=== PATIENT | male | born 1960 | race Caucasian/White ===

== ENCOUNTER 2020-03-13 00:30 | Emergency (ER) | payer SELFPAY ==
[2020-03-13 00:39] VITALS: BP 112/74; PULSE 68; RESP 16; TEMP 36.6; O2SAT 97; BMI 29.6
--- NOTE | 2020-03-13 00:39 | CT_ITS ---
EXAMINATION: CT HEAD WITHOUT CONTRAST CLINICAL INFORMATION: Fall. Alcohol intoxication. COMPARISON: None TECHNIQUE: Contiguous axial imaging was performed from the skull base to vertex without intravenous administration of contrast. This CT examination was performed using dose optimization techniques as appropriate, variously including the following: *Automated exposure control *Adjustment of mA and/or kV according to patient size (this includes techniques or standardized protocols for targeted exams where dose is matched to indication/reason for exam; i.e. extremities or head) *Use of iterative reconstruction technique DLP: 722 mGy-cm FINDINGS: There is no evidence of acute intracranial hemorrhage or territorial infarction. No abnormal mass effect or midline shift is seen. Rodriguez to white matter differentiation is well preserved. No extra-axial fluid collections are identified. The ventricles are normal in size. There is no abnormal attenuation within the brain parenchyma. The osseous structures and soft tissues are normal. The mastoid air cells and visualized portions of the paranasal sinuses are well aerated. CT/CT head/brain wo con IMPRESSION: No acute intracranial pathology.
--- NOTE | 2020-03-13 00:47 | ED_ITS ---
HPI - Head Injury General Chief complaint: ETOH/Substance Use Stated complaint: etoh fall Time Seen by Provider: 03/13/20 00:39 Source: EMS Mode of arrival: EMS Limitations: other (Intoxicated) History of Present Illness HPI Narrative: Patient was found in a ditch intoxicated with small laceration left eyebrow patient does not remember what happened no other injuries MD Complaint: head injury Mechanism of Injury: unsure Related Data Allergies Allergy/AdvReac Type Severity Reaction Status Date / Time No Known Allergies Allergy Verified 03/13/20 00:39 Review of Systems Review of Systems: Yes Unobtainable due to mental status (Intoxicated) Neurologic: Reports confusion Psychiatric: Psychiatric: Reports confusion PMFSH Past Medical History Medical History ETOH abuse Social History Social History Advance Directives: No Advance Directives Information Provided: No Physical Exam Vital Signs: Vital Signs: Last Vital Signs Temp 97.9 F 03/13/20 00:39 Pulse 68 03/13/20 00:39 Resp 16 03/13/20 00:39 BP 112/74 03/13/20 00:39 Pulse Ox 97 03/13/20 00:39 Body Mass Index 29.6 Const: General: cooperative, healthy appearing, comfortable, no acute distress, well developed, alert, confusion and intoxicated appearing Nutritional Appearance: average body habitus and well nourished Orientation/consciousness: oriented to person and confusion HENMT: Head: Yes No palpable skull fracture present, Yes normocephalic and Yes laceration Ears: hearing grossly normal bilaterally General nose exam: Normal external nose present Face images: 1. Irregular laceration about 1.5 cm Eyes: Conjunctivae: conjunctivae normal Corneas: corneas normal Pupils: Equal, round and reactive pupils present Neck: Neck: Yes normal visual inspection, Yes full ROM, Yes trachea midline, Yes supple and No midline deformity Chest: Chest palpation & inspection: normal inspection of the chest and normal palpation of entire chest wall Resp: Effort & Inspection: normal respiratory effort Auscultation: clear to auscultation bilaterally Cardio: Palpation: normal PMI Rate: regular rate Rhythm: regular rhythm Heart sounds: S1 normal heart sound present and S2 normal heart sound present GI: Inspection: Yes normal to inspection Palpation (GI): Soft to palpation and nontender : General: Yes no CVA tenderness Back/Spine/Pelvis: Back: no CVA tenderness Thoracic/Lumbar Spine: thoracic and lumbar spine normal to inspection Neuro: General: oriented to person, moves all extremities, Normal light touch and pain sensation, no focal motor deficits, CN's II-XI intact bilaterally and confusion Cranial nerves: Yes Equal, round and reactive pupils present Procedures Laceration Laceration 1: Site: face Side (If applicable): left Size (cm): 2 Description: irregular and clean Depth: simple, single layer Skin layer closed with: other (dermabond) MDM - Head Injury MDM Narrative Medical decision making narrative: Patient alcoholic minor fall head CT negative came with small irregular laceration left eyebrow Dermabond was placed patient ambulate in the ER of discharge home Discharge Plan Discharge Clinical Impression: Alcoholic intoxication Qualifiers: Complication of substance-induced condition: uncomplicated Qualified Code(s): F10.920 - Alcohol use, unspecified with intoxication, uncomplicated Laceration of eyebrow, left Qualifiers: Encounter type: initial encounter Qualified Code(s): S01.112A - Laceration w ithout foreign body of left eyelid and periocular area, initial encounter Patient Disposition: Home, Self-Care Instructions: Alcohol Intoxication (ED), Skin Adhesive Care (ED)
--- NOTE | 2020-03-13 02:28 | PC.NURSE ---
PATIENT GETTING UP AND AMBULATING, PATIENT NOT VERY STEADY ON HIS FEET BUT WHEN ASKED TO SIT BACK DOWN STARTING TO WALK FASTER AND SPRINT DOWN RESTRICTED PRECAUTION AREA. HAPPENING MULTIPLE TIMES SECURITY INVOLVED. PATIENT STATED HE WAS LEAVING REGARDLESS OF STAFF. PATIENT IN VISIBLY INTOXICATED. PATIENT NOT REMEMBERING HOW HE CAME TO THE EMERGENCY DEPARTMENT. DIFFICULT TO REDIRECT. CONTINUES TO [facility]E FACILITY[facility] AFTER PATIENT TRIED TO FLEE THE PROPERTY ONCE AGAIN. PATIENT STATED NO ONE TO TAKE HIM HOME THEN STARTED TO SPRINT AWAY FROM STAFF. ASSISTED BACK TO ROOM WITH SECURITY. POLICE INVOLVED AND PROVIDING ASSISTANCE FOR PATIENT OFF OF PROPERTY. PATIENT WAS AGREEABLE TO LEAVING WITH THEM.
== END 2020-03-13 02:35 | disposition home or self-care (01) ==
PROVIDERS: Emergency Provider Internal Medicine
DX: S01.112A Laceration without foreign body of left eyelid and periocular area, initial encounter (principal); H57.12 Ocular pain, left eye; F10.920 Alcohol use, unspecified with intoxication, uncomplicated; W19.XXXA Unspecified fall, initial encounter; Y93.9 Activity, unspecified; Y92.9 Unspecified place or not applicable; Y99.9 Unspecified external cause status
CPT/HCPCS: 12011; 70450; 99283; 99284

== ENCOUNTER 2023-01-08 10:56 | Inpatient (IN) | payer SELFPAY ==
[2023-01-08] VITALS (56 sets, daily range): BP systolic 41–270; BP diastolic 20–179; PULSE 40–127; RESP 10–34; TEMP 31–38; O2SAT 70–100; BMI 19.1; BMI 17.7
--- NOTE | 2023-01-08 11:14 | ED.CPR ---
HPI - CPR General Chief Complaint: Cardiac Arrest/CPR Stated Complaint: unresponsive, cardiac arrest Source: EMS Mode of arrival: EMS History of Present Illness HPI narrative: 62-year-old male who arrives via EMS with a known history of alcohol use, no prior call off for arrival of EMS notified when in the ambulance [place] that patient was in cardiac arrest. Related Data Allergies Allergy/AdvReac Type Severity Reaction Status Date / Time No Known Allergies Allergy Verified 01/08/23 11:18 Review of Systems Review of Systems: Yes Unobtainable due to mental condition [facility] Past Medical History Source: nursing notes reviewed Medical History ETOH abuse Social History Social History Advance Directives: No Advance Directives Information Provided: No Physical Exam Vital Signs: Vital Signs: Last Vital Signs Temp 88.7 F L 01/08/23 12:04 Pulse 89 01/08/23 12:04 Resp 23 H 01/08/23 12:04 BP 121/49 L 01/08/23 12:04 Pulse Ox 100 01/08/23 12:04 O2 Del Method Mechanical Ventil ation 01/08/23 12:04 FiO2 100 01/08/23 11:29 BMI result Body Mass Index 17.7 Medications Administered Generic Name Dose Route Start Last Admin Trade Name Freq PRN Reason Stop Dose Admin Octreotide Acetate 500 mcg/ 501 mls @ 25.05 mls/hr 01/08/23 11:15 01/08/23 11:56 Sodium Chloride IVCONT 25 mcg/hr .Q20H ÁNGEL 25.05 mls/hr Administration 25 MCG/HR Pantoprazole Sodium 80 mg/ 100 mls @ 10 mls/hr 01/08/23 11:45 01/08/23 12:13 Sodium Chloride IV 8 mg/hr .Q10H ÁNGEL 10 mls/hr Administration 8 MG/HR Discontinued Medications Generic Name Dose Route Start Last Admin Trade Name Freq PRN Reason Stop Dose Admin Ceftriaxone Sodium 1 gm/ 50 mls @ 100 mls/hr 01/08/23 11:33 01/08/23 12:10 Sodium Chloride IV 01/08/23 12:02 100 mls/hr ONCE ONE Administration Pantoprazole Sodium 80 mg 01/08/23 11:09 01/08/23 11:13 Pantoprazole Sodium 40 Mg/10 Ml Vial IVPUSH 01/08/23 11:10 80 mg ONCE ONE Administration Sodium Bicarbonate 50 meq 01/08/23 11:22 01/08/23 11:25 Sodium Bicarbonate 8.4% 50 Meq/50 Ml Syringe IVPUSH 01/08/23 11:23 50 meq ONCE ONE Administration Medical Decision Making Medical Decision Making [facility] Narrative: 1119: 62-year-old male arrives via EMS with copious amounts of coffee-ground emesis occluding the airway, currently in cardiac arrest in being bagged with IO in the right tibia. Initiated chest compressions, patient is placed on the Zoll, initiated ACLS protocol, emergently intubated patient with 7 and half ET tube, there was gross contamination of the airway with coffee-ground emesis 2 was noted to pass through the vocal cords inflation of balloon and good color metric change, end-tidal CO2 poor but suspect that this is due to likely contamination of lungs with coffee-ground emesis, pupils are fixed and dilated. We did end up getting ROSC. With good pulse and blood pressure, end-tidal CO2 continues to improve, will obtain imaging studies for placement, emergently ordered blood, consult GI, 80 mg of Protonix started, octreotide drip started, NG had been placed with positive evacuation of coffee-ground material. Hematologic indices indicative of acute blood loss hemorrhage, hemoglobin-4.8 there is an un crossmatched unit of blood that is being administered, in the meantime 1 L of IV fluids being administered, in addition VBG was noted to demonstrate acidosis which is likely a combination of respiratory and metabolic given patient's cardiac arrest 1 amp of bicarb was ordered and will be given. 1132: I discussed case with Dr. Miller who agrees with current treatment with IV push Protonix and then initiation of Protonix drip, initiation of octreotide drip, recommends Rocephin for upper GI bleed, agrees with on matched blood at this time with continuation of resuscitation and will evaluate for upper endoscopy after patient is stabilized. 1142: I discussed the case with DR Kim. Blood pressure starting to decrease and will start Levophed. First unit of blood is being put up. On review of all investigations laboratory indices are significant for acute hypoperfusion secondary to the above acute blood loss anemia, for patient has received antibiotics. There is a significant leukocytosis without left shift, acute blood loss anemia secondary to upper GI hemorrhage, no thrombocytopenia. Coagulation studies demonstrate an INR-1.3 and PT-16.2. On review of patient's home medications through the prescription portal I do not appreciate any prescriptions for anticoagulation but EKG is significant for atrial fibrillation. Blood gas demonstrated a pH-7.07 that is metabolic in etiology and patient received 1 amp of bicarb. Chemistry indices are again reflective patient's cardiac arrest/acute hypoperfusion which has led to a lactic acidosis of 14.8, there is no NASH but there is corresponding serum evidence of known metabolic acidosis, potassium is elevated at 5.6 and there is evidence of drop in fluid status with decreased sodium and chloride. Chest x-ray shows that ET tube and nasogastric tube are in good position. Patient has been accepted to the ICU. Will start propofol drip, blood pressure remains stable at this time, an additional 1 amp of bicarb is being given and requested the next 2 units of blood be given urgently. 1231: I discussed case with the family members. Differential Diagnosis Differential Diagnoses: The differential diagnosis associated with the presentation includes Please see the discussion above Admission/Observation Consideration of admission/observation: Escalation of care including admission/observation considered Please see the discussion above Consult Healthcare Provider Management of the patient was discussed with: Warehouse [employer] Please see the discussion above Lab Data MDM Lab Attestation statement: I reviewed the patient's lab results. Please see the discussion above 01/08/23 11:00 01/08/23 11:00 Labs: Lab Results 01/08/23 01/08/23 01/08/23 Range/Units 10:59 11:00 11:00 WBC 24.8 H (4.8-10.8) X10*3/uL RBC 1.65 L (4.60-5.80) X10*6/uL Hgb 4.8 L* (14.0-18.0) g/dl Hct 15.3 L* (42.0-52.0) % MCV 92.7 (80.0-98.0) fL MCH 29.1 (27.0-33.0) pg MCHC 31.4 (31.0-36.0) g/dl RDW 14.2 (11.0-16.0) % Plt Count 308 (160-400) X10*3/uL MPV 10.3 (9.4-12.4) fL Immature Gran % (Auto) Cancelled Neut % (Auto) Cancelled Lymph % (Auto) Cancelled [place] % (Auto) Cancelled Eos % (Auto) Cancelled Baso % (Auto) Cancelled Lymph # (Auto) Cancelled [place] # (Auto) Cancelled Eos # (Auto) Cancelled Baso # (Auto) Cancelled Abs Immat Gran (auto) Cancelled Absolute Neuts (auto) Cancelled Absolute Nucleated RBC 0.550 H (0.0-0.012) X10*3/uL Nucleated RBC % (auto) 2.2 H (0.0-0.2) /100WBC Neutrophils % (Manual) 62 (45-73) % Band Neutrophils % 7 H (3-5) % Lymphocytes % (Manual) 20 (20-40) % Monocytes % (Manual) 4 (2-11) % Eosinophils % (Manual) 1 (0-4) % Metamyelocytes % 2 % Myelocytes % 4 % Abs Neuts (Manual) 17.1 H (2.0-8.3) X10*3/uL Lymphocytes # (Manual) 5.0 H (1.2-4.9) X10*3/uL Monocytes # (Manual) 1.0 (0.1-1.2) X10*3/uL Eosinophils # (Manual) 0.2 (0.0-0.4) X10*3/uL Metamyelocytes # 0.5 X10*3/uL Myelocytes # 1.0 X10*/uL Nucleated RBCs 5 H (0-0) /100WBC Platelet Estimate NORMAL (NORMAL) Plt Morphology Comment NORMAL RBC Morphology NOTED Polychromasia 1+ (0-2) /OIF Spherocytes 1+ (0-2) /OIF Hilton Cells 3+ (>5) /OIF Acanthocytes (Spur) 1+ (0-2) /OIF Schistocytes 1+ (0-2) /OIF Hold Purple Top SEE NOTE PT 16.2 H Cancelled (11.1-13.3) SEC INR 1.3 H (0.9-1.1) APTT (26.0-36.4) SEC VBG pH (7.32-7.43) VBG pCO2 mmHg VBG pO2 mmHg VBG HCO3 (22-26) mmol/L VBG O2 Saturation VBG Base Excess mmol/L Sodium (135-145) mmol/L Potassium (3.3-5.1) mmol/L Chloride (96-108) mmol/L Carbon Dioxide (22-29) mmol/L Anion Gap (12-20) BUN (9-16) mg/dL Creatinine (0.5-1.4) mg/dL Estim Creat Clear Calc Estimated GFR POC Glucose 219 H (60-115) mg/dL Random Glucose (60-115) mg/dL Lactic Acid (0.5-2.0) mmol/L Calcium (8.4-10.2) mg/dL Magnesium (1.6-2.6) mg/dL Total Bilirubin (0.0-1.0) mg/dL AST (5-37) U/L ALT (0-40) U/L Alkaline Phosphatase (39-117) U/L Troponin I High Sens (<3.5-35.0) ng/L Total Protein (6.5-8.0) g/dL Albumin (3.5-5.0) g/dL Salicylates (15-30) mg/dL Acetaminophen (<30) mcg/mL Ethyl Alcohol mg/dL Blood Type Antibody Screen Crossmatch 01/08/23 01/08/23 01/08/23 Range/Units 11:00 11:14 11:42 WBC (4.8-10.8) X10*3/uL RBC (4.60-5.80) X10*6/uL Hgb (14.0-18.0) g/dl Hct (42.0-52.0) % MCV (80.0-98.0) fL MCH (27.0-33.0) pg MCHC (31.0-36.0) g/dl RDW (11.0-16.0) % Plt Count (160-400) X10*3/uL MPV (9.4-12.4) fL Immature Gran % (Auto) Neut % (Auto) Lymph % (Auto) [place] % (Auto) Eos % (Auto) Baso % (Auto) Lymph # (Auto) [place] # (Auto) Eos # (Auto) Baso # (Auto) Abs Immat Gran (auto) Absolute Neuts (auto) Absolute Nucleated RBC (0.0-0.012) X10*3/uL Nucleated RBC % (auto) (0.0-0.2) /100WBC Neutrophils % (Manual) (45-73) % Band Neutrophils % (3-5) % Lymphocytes % (Manual) (20-40) % Monocytes % (Manual) (2-11) % Eosinophils % (Manual) (0-4) % Metamyelocytes % % Myelocytes % % Abs Neuts (Manual) (2.0-8.3) X10*3/uL Lymphocytes # (Manual) (1.2-4.9) X10*3/uL Monocytes # (Manual) (0.1-1.2) X10*3/uL Eosinophils # (Manual) (0.0-0.4) X10*3/uL Metamyelocytes # X10*3/uL Myelocytes # X10*/uL Nucleated RBCs (0-0) /100WBC Platelet Estimate (NORMAL) Plt Morphology Comment RBC Morphology Polychromasia /OIF Spherocytes /OIF Melisa Cells /OIF Acanthocytes (Spur) /OIF Schistocytes /OIF Hold Purple Top PT (11.1-13.3) SEC INR Cancelled (0.9-1.1) APTT 47.2 H (26.0-36.4) SEC VBG pH 7.07 L* (7.32-7.43) VBG pCO2 21 mmHg VBG pO2 87 mmHg VBG HCO3 6 L (22-26) mmol/L VBG O2 Saturation TNP VBG Base Excess -21.5 mmol/L Sodium 124 L (135-145) mmol/L Potassium 5.6 H (3.3-5.1) mmol/L Chloride 92 L (96-108) mmol/L Carbon Dioxide 8 L* (22-29) mmol/L Anion Gap 30 H (12-20) BUN 53 H (9-16) mg/dL Creatinine 1.12 (0.5-1.4) mg/dL Estim Creat Clear Calc 54.2 Estimated GFR > 60 POC Glucose (60-115) mg/dL Random Glucose 269 H (60-115) mg/dL Lactic Acid 14.8 H* (0.5-2.0) mmol/L Calcium 8.4 (8.4-10.2) mg/dL Magnesium 3.0 H (1.6-2.6) mg/dL Total Bilirubin 0.3 (0.0-1.0) mg/dL AST 149 H (5-37) U/L ALT 145 H (0-40) U/L Alkaline Phosphatase 290 H (39-117) U/L Troponin I High Sens 7.2 (<3.5-35.0) ng/L Total Protein 4.3 L (6.5-8.0) g/dL Albumin 2.4 L (3.5-5.0) g/dL Salicylates < 5.0 L (15-30) mg/dL Acetaminophen < 17 (<30) mcg/mL Ethyl Alcohol < 10 mg/dL Blood Type A Positive Antibody Screen NEGATIVE Crossmatch See Detail Independent Interpretation I performed an independent interpretation of an: EKG Interpretation: Atrial fibrillation. Radiology Impression Discussion of test interpretation with radiology: I have reviewed the radiologist's reading. Radiologist Impression: Please see the discussion above External Record Review External record reviewed: Outpatient record, Prior outpatient labs and Prior outpatient radiology Chronic Conditions Patient?s care impacted by: Other Alcohol use disorder Procedures Intubation Time out performed: No sedative: none Laryngoscope: fiber optic video scope ET Tube Size: 7.5 ET Tube Uncuffed: Yes Tube Secured Depth (cm): 23 Tube Secured Location: lips Tube Placement Confirmation: visualized tube passing through cords, equal breath sounds bilaterally, no breath sounds over epigastrium and confirmation by capnometry Patient Tolerated Procedure: well Additional Comments: Gross contamination of airway with coffee-ground emesis. Critical Care Time Critical Care Time Critical Care Time: Yes Total Critical Care Time: 60 Attestation: I personally attest to this time spent taking care of the patient. Discharge Plan Discharge Clinical Impression: Cardiac arrest, Acute upper GI bleed Patient Disposition: Admitted As Inpatient
--- NOTE | 2023-01-08 13:56 | PM.GICN ---
History of Present Illness Data of Consult Service Date: 01/08/23 Requesting physician: Aida Michaels Primary Care Provider: None Physician HPI Reason for consult: UGIB This is a 62 y.o M with PMH of etOH use disorder who was brought to the ER for cardiac arrest on route to the hospital s/p ROSC and admission to ICU for post cardiac arrest, hemorrhagic shock and hypoxic resp failure. Gastroenterology has been consulted for hemorrhagic shock 2/2 GIB. From collateral history, patient was noted to have copious amounts of coffee-ground emesis in the EMS, as well as after insertion of the OG tube almost 1 L was suctioned. No BRB noted. No melena noted so far. He does have history of alcohol use disorder and has had visit to the ER in the past for acute intoxication. Underlying liver function is unknown. Details of cardiac arrest including initial rhythm, total downtime and ROSC time are also unknown. Initial etOH level was undetectable although opiate positive. Again limited hx whether there is an underlying suspicion for opiate overdose and if narcan was utilised. Initial labs are significant for acute anemia of blood loss with Hb 4.8, profound acidosis with pH 7.0 and lactate 14. At the time of assessment in ICU, he is on significant pressor support. Review of Systems Review of Systems: Yes unobtainable due to endotracheal tube and Unobtainable due to mental condition PMFSH Past Medical History Medical History ETOH abuse Social History Social History Household Members: Unknown / Unable to assess Housing: Unknown / Unable to assess Unable to assess alcohol history related to: Unable to respond Patient Tobacco Use Status: Refuse Tobacco use screen Meds Allergies Allergy/AdvReac Type Severity Reaction Status Date / Time No Known Allergies Allergy Verified 01/08/23 11:18 Active Medications: Current Medications Octreotide Acetate 500 mcg/ (Sodium Chloride) 501 mls @ 25.05 mls/hr IVCONT .Q20H ÁNGEL Last Admin: 01/08/23 11:56 Dose: 25 mcg/hr, 25.05 mls/hr Pantoprazole Sodium 80 mg/ (Sodium Chloride) 100 mls @ 10 mls/hr IV .Q10H ÁNGEL Last Admin: 01/08/23 12:13 Dose: 8 mg/hr, 10 mls/hr Norepinephrine Bitartrate (Levophed) 8 mg in 250 mls @ 0 mls/hr IV .Q0M ÁNGEL; Protocol Last Admin: 01/08/23 13:40 Dose: 0.05 mcg/kg/min, 5.26 mls/hr Propofol (Diprivan) 1,000 mg in 100 mls @ 0 mls/hr IVCONT .Q0M ÁNGEL; Protocol Last Admin: 01/08/23 13:32 Dose: 30 mcg/kg/min, 10.1 mls/hr Physical Exam Vital Signs: Vital Signs: Last Vital Signs Temp 89.2 F L 01/08/23 12:53 Pulse 95 01/08/23 13:40 Resp 18 01/08/23 13:32 BP 67/38 L 01/08/23 13:40 Pulse Ox 91 L 01/08/23 13:32 O2 Del Method Mechanical Ventil ation 01/08/23 12:53 FiO2 100 01/08/23 11:29 BMI result Body Mass Index 17.7 Gen appear: Ill appearing, intubated HEENT: nonicteric, Chest: Diffuse ronchi CVS: Regular S1/S2 Abd: soft, nondistended, bowel sounds hypoactive Ext: no peripheral edema Neuro: Sedated with propofol Results Labs 01/08/23 16:06 01/08/23 16:06 Labs: Short CBC 01/08/23 Range/Units 11:00 WBC 24.8 H (4.8-10.8) X10*3/uL Hgb 4.8 L* (14.0-18.0) g/dl Hct 15.3 L* (42.0-52.0) % Plt Count 308 (160-400) X10*3/uL BMP 01/08/23 11:00 Sodium 124 L Potassium 5.6 H Chloride 92 L Carbon Dioxide 8 L* BUN 53 H Creatinine 1.12 Calcium 8.4 Liver Function 01/08/23 Range/Units 11:00 Total Bilirubin 0.3 (0.0-1.0) mg/dL AST 149 H (5-37) U/L ALT 145 H (0-40) U/L Alkaline Phosphatase 290 H (39-117) U/L Albumin 2.4 L (3.5-5.0) g/dL Urine 01/08/23 Range/Units 11:45 Urine Color Yellow Urine Appearance Clear Urine pH 6.0 (5.0-9.0) Ur Specific [place] 1.025 (1.005-1.025) Urine Protein 30 (1+) H (Neg-Trace) mg/dL Urine Glucose (UA) Negative (Negative) mg/dL Assessment and Plan (1) Anemia: Status: Acute (2) Alcohol use disorder: Status: Acute (3) Cardiac arrest: Status: Acute Plan Ddx for GIB leading to shock include variceal bleeding, PUD, aortoenteric fistula. Will need continued resuscitation as primary team is already doing although would recommend another CBC check after 2u are transfused to ensure current H/H is not in error. He will also need to be r/o other potential causes of cardiac arrest hipolito arrythmia, cardiomyopathy, PE, opiate overdose etc since limited information surrounding his cardiac arrest is available at this time. Recommendations: - Cont resuscitation. Consider rechecking CBC after 2u transfusion to r/o lab error. - Since underlying chronic liver disease is suspected given report of longstanding etOH use, recommend adding IV octreotide and ceftriaxone - Check LFTs - although expect to see high transaminases post cardiac arrest from shock liver - Agree with IV protonix - Consider CT imaging of abd once pt stable to transport to [facility] - Evaluation for etiology of cardiac arrest as per primary team - Once adequately resuscitated and stabilized from cardiopulmonary standpoint, will need an upper endoscopy for evaluation - Keep NPO Thank you for allowing me to participate in his care. Please do not hesitate to reach out for any questions or concerns. Time Spent With Patient Time: Total time managing care of this patient today ____ minutes. Procedures Date of Service Date of Service: 01/08/23
--- NOTE | 2023-01-08 14:07 | PC.NURSE ---
ICU provider bedside attempting to obtain central line access.
--- NOTE | 2023-01-08 15:20 | W.PM.CCHP ---
Procedures Date of Service Date of Service: 01/08/23 Central Line Placement Right IJ: Central Line Comments: Patient in hemorrhagic shock refractory to peripheral pressor support, emergent right-sided Cordis sheath introduced placed in the emergency room under ultrasound guidance with no immediate complications at approximately 1445. X-ray for line position is pending.
--- NOTE | 2023-01-08 15:20 | PC.NURSE ---
brought in by ambulance after family member called ems d/t pt not acting right/eating for a week. upon arrival, pt was found in sinus katalina at 40 beats per min and 6 respirations per min. ems placed I&O in right howard. 0.5mg of atropine administered by ems - heart rate increased to 60. another 0.5mg of atropine administered by ems - no pulse noted so cpr was initiated. 500cc of ground coffee emesis was suctioned while en route to ED. 2 rounds of epi also administered. 1055 - pt brought in by ambulance 1056 - tube placed by Dr. Michaels - 7 / tube, 23 at lip 1058 - 20g IV placed in right AC 1059 - pulse check - compressions resumed 1100 - 1mg epi 1101 - pulse check - compressions resumed 1103 - pulse check - pupils fixed and dilated - compressions resumed 1104 - 1mg epi 1105 - pulse check - PEA - compressions resumed 1107 - pulse check - pulse felt in right femoral - 87bpm 1110 - BP = 99/81, HR = 87, end tidal = 23 1111 - ekg performed, documented and seen by provider 1113 - 80mg protonix administered via IV in right AC
--- NOTE | 2023-01-08 15:53 | PC.NURSE ---
This RN arrival to ER to assist at approx 1350. BP found to be low - dropping to 60's to 70's systolic at this time. Dr Kim ordered to increase Levo in increments of 0.1, to max of 0.7mcg/kig/min by the time need to transfer from ER to ICU. Dr Kim aware of rates of levo. Dr Kim at bedside to do emergent central line - 6 haitian cordis put in at approx 1420. 3rd unit of blood running in as fast as possible. Patient O2sat started dropping to 78% to 82% - RT called to bedside - ensured 02 up to 100%. Once cordis was put in, Dr Kim ordered patient to come right to unit r/t instability & not do CT scan. Also Ordered to run levo through central line prior to CXR confirmation. OG tube hooked to intermit suction per MD order - coffee ground emesis coming from tube. Bear hugger put back on once in ER. Patient low temp 91-93. Patient brought to ICU emergently to 252 with RT at bedside at approx 1445. Levophed remains at 0.7mcg/kg/min. O2sat to mid 80's - Dr Kim & RT working on vent setting changes.
--- NOTE | 2023-01-08 15:53 | PM.CCHP ---
History of Present Illness Date of Service: 01/08/23 Chief Complaint: cardiac arrest, hemorrhagic shock 62-year-old gentleman with underlying alcoholism admitted on 01/08/2023 with coffee ground emesis resulting in cardiac arrest in the emergency room with return of spontaneous circulation after approximately 15 minutes of CPR, intubated during the code with coffee-ground material suctioned from ET tube. patient with initial stabilization, however shortly re-developed shock requiring placement of emergent large bore central venous access for pressor support and blood product administration. Unable to obtain imaging studies secondary to refractory shock and hypoxia refractory to maximum ventilatory support. Gastroenterology service consulted. Status post confusion of 4 units of packed red blood cells with improvement of initial hemoglobin of 4.8. Patient continues on multiple pressor support. Review of Systems Review of Systems: Yes unobtainable due to endotracheal tube, Unobtainable due to mental condition and Unobtainable due to mental status PMFSH Past Medical History Medical History ETOH abuse Social History Social History Household Members: Unknown / Unable to assess Housing: Unknown / Unable to assess Unable to assess alcohol history related to: Unable to respond Patient Tobacco Use Status: Refuse Tobacco use screen Meds Allergies Allergy/AdvReac Type Severity Reaction Status Date / Time No Known Allergies Allergy Verified 01/08/23 11:18 Active Medications: Current Medications Octreotide Acetate 500 mcg/ (Sodium Chloride) 501 mls @ 25.05 mls/hr IVCONT .Q20H ÁNGEL Last Admin: 01/08/23 11:56 Dose: 25 mcg/hr, 25.05 mls/hr Pantoprazole Sodium 80 mg/ (Sodium Chloride) 100 mls @ 10 mls/hr IV .Q10H ÁNGEL Last Admin: 01/08/23 12:13 Dose: 8 mg/hr, 10 mls/hr Norepinephrine Bitartrate (Levophed) 8 mg in 250 mls @ 0 mls/hr IV .Q0M ÁNGEL; Protocol Last Admin: 01/08/23 13:40 Dose: 0.05 mcg/kg/min, 5.26 mls/hr Propofol (Diprivan) 1,000 mg in 100 mls @ 0 mls/hr IVCONT .Q0M ÁNGEL; Protocol Last Admin: 01/08/23 13:32 Dose: 30 mcg/kg/min, 10.1 mls/hr Lactated Ringer's (Lr) 1,000 mls @ 999 mls/hr IV .Q1H1M ÁNGEL Stop: 01/08/23 17:30 Last Admin: 01/08/23 15:46 Dose: 999 mls/hr Physical Exam Vital Signs: Vital Signs: Last Vital Signs Temp 93 F L 01/08/23 15:23 Pulse 100 01/08/23 15:23 Resp 22 H 01/08/23 15:23 BP 128/65 01/08/23 15:23 Pulse Ox 86 L 01/08/23 15:00 O2 Del Method Mechanical Ventil ation 01/08/23 15:00 FiO2 100 01/08/23 15:00 BMI result Body Mass Index 17.7 Const: General: other ( Comatose) Nutritional Appearance: malnourished Eyes: Sclerae: sclerae normal Neck: Neck: Yes no lymphadenopathy, Yes trachea midline and Yes supple Resp: Auscultation: crackles ( diffuse bilateral) Cardio: Rate: tachycardic Rhythm: regular rhythm Heart sounds: no gallops, no murmurs and no rubs GI: Palpation (GI): Soft to palpation and Other GI palpation findings present ( Nontender) Auscultation: normal bowel sounds Extrem: General: Yes no pedal edema, No clubbing and No cyanosis Results Labs 01/08/23 16:06 01/08/23 16:06 Labs: Laboratory Results - last 24 hr 01/08/23 01/08/23 01/08/23 10:59 11:00 11:00 MCV 92.7 MCH 29.1 MCHC 31.4 RDW 14.2 Plt Count 308 MPV 10.3 Immature Gran % (Auto) Cancelled Neut % (Auto) Cancelled Lymph % (Auto) Cancelled George % (Auto) Cancelled Eos % (Auto) Cancelled Baso % (Auto) Cancelled Lymph # (Auto) Cancelled George # (Auto) Cancelled Eos # (Auto) Cancelled Baso # (Auto) Cancelled Abs Immat Gran (auto) Cancelled Absolute Neuts (auto) Cancelled Absolute Nucleated RBC 0.550 H Nucleated RBC % (auto) 2.2 H Neutrophils % (Manual) 62 Band Neutrophils % 7 H Lymphocytes % (Manual) 20 Monocytes % (Manual) 4 Eosinophils % (Manual) 1 Metamyelocytes % 2 Myelocytes % 4 Abs Neuts (Manual) 17.1 H Lymphocytes # (Manual) 5.0 H Monocytes # (Manual) 1.0 Eosinophils # (Manual) 0.2 Metamyelocytes # 0.5 Myelocytes # 1.0 Nucleated RBCs 5 H Platelet Estimate NORMAL Plt Morphology Comment NORMAL RBC Morphology NOTED Polychromasia 1+ (0-2) Spherocytes 1+ (0-2) Melisa Cells 3+ (>5) Acanthocytes (Spur) 1+ (0-2) Schistocytes 1+ (0-2) Hold Purple Top SEE NOTE PT 16.2 H Cancelled INR 1.3 H APTT O2 Saturation ABG pH at Pt Temp ABG pCO2 at Pt Temp ABG pO2 at Pt Temp ABG HCO3 ABG Base Excess (Actual) VBG pH VBG pCO2 VBG pO2 VBG HCO3 VBG O2 Saturation VBG Base Excess Anion Gap Estim Creat Clear Calc Estimated GFR POC Glucose 219 H Random Glucose Lactic Acid Lactic Acid F/U @ 2Hr Calcium Magnesium Total Bilirubin AST ALT Alkaline Phosphatase Total Protein Albumin Urine Color Urine Appearance Urine pH Ur Specific [place] Urine Protein Urine Glucose (UA) Urine Ketones Urine Blood Urine Nitrite Ur Leukocyte Esterase Urine RBC Urine WBC Ur Squamous Epith Cells Urine Bacteria Hyaline Casts Salicylates Urine Opiates Screen Urine Fentanyl Screen Acetaminophen Ur Barbiturates Screen Ur Phencyclidine Scrn Ur Amphetamines Screen U Benzodiazepines Scrn Urine Cocaine Screen U Marijuana (THC) Screen Ethyl Alcohol Blood Type Antibody Screen Crossmatch 01/08/23 01/08/23 01/08/23 11:00 11:14 11:42 MCV MCH MCHC RDW Plt Count MPV Immature Gran % (Auto) Neut % (Auto) Lymph % (Auto) George % (Auto) Eos % (Auto) Baso % (Auto) Lymph # (Auto) George # (Auto) Eos # (Auto) Baso # (Auto) Abs Immat Gran (auto) Absolute Neuts (auto) Absolute Nucleated RBC Nucleated RBC % (auto) Neutrophils % (Manual) Band Neutrophils % Lymphocytes % (Manual) Monocytes % (Manual) Eosinophils % (Manual) Metamyelocytes % Myelocytes % Abs Neuts (Manual) Lymphocytes # (Manual) Monocytes # (Manual) Eosinophils # (Manual) Metamyelocytes # Myelocytes # Nucleated RBCs Platelet Estimate Plt Morphology Comment RBC Morphology Polychromasia Spherocytes [place] Cells Acanthocytes (Spur) Schistocytes Hold Purple Top PT INR Cancelled APTT 47.2 H O2 Saturation ABG pH at Pt Temp ABG pCO2 at Pt Temp ABG pO2 at Pt Temp ABG HCO3 ABG Base Excess (Actual) VBG pH 7.07 L* VBG pCO2 21 VBG pO2 87 VBG HCO3 6 L VBG O2 Saturation TNP VBG Base Excess -21.5 Anion Gap 30 H Estim Creat Clear Calc 54.2 Estimated GFR > 60 POC Glucose Random Glucose 269 H Lactic Acid 14.8 H* Lactic Acid F/U @ 2Hr Calcium 8.4 Magnesium 3.0 H Total Bilirubin 0.3 AST 149 H ALT 145 H Alkaline Phosphatase 290 H Total Protein 4.3 L Albumin 2.4 L Urine Color Urine Appearance Urine pH Ur Specific [place] Urine Protein Urine Glucose (UA) Urine Ketones Urine Blood Urine Nitrite Ur Leukocyte Esterase Urine RBC Urine WBC Ur Squamous Epith Cells Urine Bacteria Hyaline Casts Salicylates < 5.0 L Urine Opiates Screen Urine Fentanyl Screen Acetaminophen < 17 Ur Barbiturates Screen Ur Phencyclidine Scrn Ur Amphetamines Screen U Benzodiazepines Scrn Urine Cocaine Screen U Marijuana (THC) Screen Ethyl Alcohol < 10 Blood Type A Positive Antibody Screen NEGATIVE Crossmatch See Detail 01/08/23 01/08/23 01/08/23 11:45 13:44 15:03 MCV MCH MCHC RDW Plt Count MPV Immature Gran % (Auto) Neut % (Auto) Lymph % (Auto) George % (Auto) Eos % (Auto) Baso % (Auto) Lymph # (Auto) George # (Auto) Eos # (Auto) Baso # (Auto) Abs Immat Gran (auto) Absolute Neuts (auto) Absolute Nucleated RBC Nucleated RBC % (auto) Neutrophils % (Manual) Band Neutrophils % Lymphocytes % (Manual) Monocytes % (Manual) Eosinophils % (Manual) Metamyelocytes % Myelocytes % Abs Neuts (Manual) Lymphocytes # (Manual) Monocytes # (Manual) Eosinophils # (Manual) Metamyelocytes # Myelocytes # Nucleated RBCs Platelet Estimate Plt Morphology Comment RBC Morphology Polychromasia Spherocytes Melisa Cells Acanthocytes (Spur) Schistocytes Hold Purple Top PT INR APTT O2 Saturation 82.0 ABG pH at Pt Temp 6.94 L* ABG pCO2 at Pt Temp 50 H ABG pO2 at Pt Temp 65 L ABG HCO3 11 L ABG Base Excess (Actual) -20.5 VBG pH VBG pCO2 VBG pO2 VBG HCO3 VBG O2 Saturation VBG Base Excess Anion Gap Estim Creat Clear Calc Estimated GFR POC Glucose Random Glucose Lactic Acid Lactic Acid F/U @ 2Hr 14.2 H* Calcium Magnesium Total Bilirubin AST ALT Alkaline Phosphatase Total Protein Albumin Urine Color Yellow Urine Appearance Clear Urine pH 6.0 Ur Specific Hartley 1.025 Urine Protein 30 (1+) H Urine Glucose (UA) Negative Urine Ketones Negative Urine Blood Negative Urine Nitrite Negative Ur Leukocyte Esterase Negative Urine RBC 0-2 Urine WBC 0-5 Ur Squamous Epith Cells 0-2 Urine Bacteria None Seen Hyaline Casts 6-10 Salicylates Urine Opiates Screen POSITIVE H Urine Fentanyl Screen Not Detected Acetaminophen Ur Barbiturates Screen Not Detected Ur Phencyclidine Scrn Not Detected Ur Amphetamines Screen Not Detected U Benzodiazepines Scrn Not Detected Urine Cocaine Screen Not Detected U Marijuana (THC) Screen POSITIVE H Ethyl Alcohol Blood Type Antibody Screen Crossmatch Imaging Radiologist's Impressions: Impressions Chest X-Ray 01/08/23 11:30 IMPRESSION: 1. Endotracheal tube and enteric tube are in satisfactory position. 2. Bilateral patchy interstitial opacities greater on the right likely interstitial edema or pneumonitis. No pleural effusion seen. Assessment and Plan (1) Acute hypoxic respiratory failure: Status: Acute (2) Pulmonary aspiration of gastric contents: Status: Acute (3) Acute upper GI bleed: Status: Acute (4) Cardiac arrest: Status: Acute (5) Alcohol use disorder: Status: Acute (6) Acute blood loss anemia: Status: Acute (7) Hemorrhagic shock: Status: Acute (8) Ischemia reperfusion injury of liver: Status: Acute Plan Assessment: 62-year-old gentleman admitted with cardiac arrest secondary to hemorrhagic shock secondary to upper GI bleed with hospital course further complicated by refractory shock and refractory hypoxia Plan: Neuro: No acute issues. Cardiac: Cardiac arrest after hemorrhagic shock, now on multiple pressor support. Continue to titrate off as tolerated. Echo requested. Pulmonary: Acute hypoxic respiratory failure, intubated during CPR, aspiration of gastric contents/coffee ground emesis. On maximum ventilatory support with refractory hypoxia. Renal: No acute issues. Endo: No acute issues. GI: Upper GI bleed. Gastroenterology service consulted. PPI and octreotide drips. Suspicion for underlying alcoholic cirrhosis. ID: No evidence of septic shock. Underlying hemorrhagic shock.. Empirically covered with cefepime. Heme/Onc: acute blood loss anemia secondary to upper GI bleed, now status post 4 units of packed red blood cells with stabilization of initial hemoglobin of 4.8. continue to monitor hemoglobin level. Psych: No acute issues. Miscellaneous: patient's sister notified. Prophylaxis: PPI drip, pneumatic compression Diet: nothing by mouth Critical care time spent: 120 minutes excluding separately billable procedures Time Spent With Patient Time: Total time managing care of this patient today ____ minutes.
--- NOTE | 2023-01-08 19:03 | PC.NURSE ---
Assumed care at 1630. Pt continues to be mechanically ventilated, levophed drip titrated per MAR. Pt experienced multiple wide variations in BP, o2 saturation, and HR. MD notified and at bedside. Epi and mia drips ordered, started, and titrated per MAR. For details, see provider notification flowsheet. Pacer pads in place, backboard in place, code cart and Dylan in room. 1 amp bicarb and 2g calcium gluconate administered per MAR. Current vitals: HR 125; bp 99/55; o2 sat 83% on 100% fio2. MD aware. Shift report given to overnight RN.
[2023-01-09] VITALS (97 sets, daily range): BP systolic 60–130; BP diastolic 30–74; PULSE 82–143; RESP 20–38; TEMP 34.7–38.1; O2SAT 71–95; BMI 20.9
[2023-01-09 05:58] LABS: Alanine Aminotransferase 1197 U/L (0-40); Albumin Level 1.8 g/dL (3.5-5.0); Alkaline Phosphatase 135 U/L (39-117); Anion Gap 21 (12-20); Aspartate Amino Transferase 2237 U/L (5-37); Bilirubin Total 1.3 mg/dL (0.0-1.0); Blood Urea Nitrogen 58 mg/dL (9-16); Calcium 6.5 mg/dL (8.4-10.2); Carbon Dioxide 15 mmol/L (22-29); Chloride 95 mmol/L (96-108); Creatinine Clr Calc Pharmacy 32.6; Estimated Glomerular Filt Rate 37; Glucose Random 146 mg/dL (60-115); Phosphorus 4.1 mg/dL (2.7-4.5); Potassium 3.7 mmol/L (3.3-5.1); Sodium 127 mmol/L (135-145); Total Protein 2.9 g/dL (6.5-8.0)
--- NOTE | 2023-01-09 06:18 | PM.EVENT ---
Documented by User: Josh Chan NP 01/09/23 06:21 Event Note Date of Service: 01/09/23 Event Note: Patient sister Romina Calderon, only patient relative, at bedside,Informed of patient condition and poor clinical status. Sister decided to change code status to DNR/DNI at this time. Time Spent With Patient Time: Total time managing care of this patient today ____ minutes. Documented by User: Kaz Kim MD 01/09/23 11:15 Event Note Date of Service: 01/09/23
--- NOTE | 2023-01-09 07:00 | CA_ITS ---
Transthoracic Echocardiogram Patient (Last, First, Middle): Hussein Melchor, Gender: Male Date of : 1960 Age: 62 Procedure Date: 01/09/2023 Procedure Type: Transthoracic Echocardiogram Location: ICU Height: 167.64 cm Weight: 65.77 kg BSA: 1.74 m2 Heart Rate: bpm BP: 91 / 42 mmHg Machine Skiver: Referring MD: Kaz Kim MD Symptoms: s/p cardiac arrest Study Quality: Fair ECG Rhythm: Sinus Conclusions: - Normal left ventricular cavity size. There is normal left ventricular wall thickness. The left ventricular systolic function is mildly decreased. The visually estimated ejection fraction is between 40-45%. - Normal right ventricular cavity size and systolic function. - There is mild dilatation of the ascending aorta measuring 3.40 cm. Findings Procedure Information Contrast agent, definity, is being given per protocol without apparent complications. Left Ventricle Normal left ventricular cavity size. There is normal left ventricular wall thickness. The left ventricular systolic function is mildly decreased. The visually estimated ejection fraction is between 40-45%. There is mild global hypokinesis. Diastolic function is normal for age. Right Ventricle Normal right ventricular cavity size and systolic function. Atria The left atrium is normal in size. Aortic Valve Normal aortic valve structure and function. There is no aortic valve stenosis. There is no aortic valve regurgitation. Mitral Valve Likely normal mitral valve structure and function. There is no mitral valve regurgitation. There is no mitral valve stenosis. Pulmonic Valve The pulmonic valve is likely normal. Tricuspid Valve Normal tricuspid valve structure. There is trace tricuspid valve regurgitation. Tricuspid regurgitation envelope is inadequate for calculation of right ventricular systolic pressure. Indeterminate right atrial pressure. Great Vessels There is mild dilatation of the ascending aorta measuring 3.40 cm. Venous The inferior vena cava is normal in size and does not collapse with inspiration. Pericardium/Pleural There is no evidence of pericardial effusion. Prior Study Comparison No prior study available for comparison. Measurements 2D Linear Measurements IVSd: 0.86 0.6-0.9/0.6-1.0 cm LVIDd: 4.00 3.9-5.3/4.2-5.9 cm LVIDd Index: 2.30 2.4-3.2/2.2-3.1 cm/m2 LVIDs: 2.46 2.0-3.6 cm LVPWd: 0.88 0.7-1.1 cm Ao Root: 3.10 2.1-3.5 cm LA Diam: 2.30 2.7-3.8/3.0-4.0 cm LAIDs Index: 1.32 1.5-2.3 cm/m2 LV Mass: 130.12 67-162/88-224 g LV Mass Index: 74.78 43-95/49-115 g/m2 LVOT Diam: 2.10 3.0+(-)1.3 cm 2D Systolic Function EF 4C: 37.40 >55% EF 2C: 34.90 >55% EF BiP: 31.70 >55% Mitral Valve MV Pk E: 0.42 MV PK A: 0.71 MV Decel Time: 149.00 E/A: 0.60 E'Lateral: 12.10 E'Medial: 9.36 E/E' Med: 4.50 E/E' Lat: 3.50 PHT: 44.00 MVA PHT: 5.00 Decel [place]: 2.84 Aortic Valve AoV Pk Charan: 1.41 AoV Mn Charan: 0.96 AoV VTI: 0.18 AoV Pk Grad: 8.00 Aov Mn Grad: 4.00 GARY Cont.VTI: 2.53 LVOT LVOT Pk Charan: 0.90 LVOT Mn Charan: 0.52 LVOT VTI: 0.13 LVOT Pk Grad: 3.00 LVOT Mn Grad: 2.00 LVOT Diam: 2.10 LVOT Area: 3.46 Diastolic Function MV Pk E: 0.42 MV Pk A: 0.71 E/A: 0.60 E'Medial: 9.36 E/E' Med: 4.50 E' Laterial: 12.10 E/E' Lat: 3.50 Right Ventricle TAPSE (mm): 21.00 Tricuspid Valve TR Pk Charan: 2.72 TR Pk Grad: 30.00 Great Vessels Aorta Ao Root-2D: 3.10 2.0-3.7 cm Ao Asc: 3.40 2.1-3.4 cm Pulmonary Valve PV Pk Charan: 1.06 Peak PV Grad: 4.00 Updated in Other Vendor System with Status of Final Bjorn Mortensen MD electronically signed on 01/09/2023 6:34:22 PM with status of Final
--- NOTE | 2023-01-09 09:55 | MHC.CLN ---
RE: CONSULT SEE FULL CLINICAL NUTRITION ASSESSMENT
--- NOTE | 2023-01-09 11:15 | PM.CCPN ---
Subjective Subjective Date of Service: 01/09/23 Interval History: 62-year-old gentleman with underlying alcoholism admitted on 01/08/2023 with coffee ground emesis resulting in cardiac arrest in the emergency room with return of spontaneous circulation after approximately 15 minutes of CPR, intubated during the code with coffee-ground material suctioned from ET tube. patient with initial stabilization, however shortly re-developed shock requiring placement of emergent large bore central venous access for pressor support and blood product administration. Unable to obtain imaging studies secondary to refractory shock and hypoxia refractory to maximum ventilatory support. Gastroenterology service consulted. Status post transfusion of 4 units of packed red blood cells with improvement of initial hemoglobin of 4.8. Patient continues on multiple pressor support. Events overnight. No rebleeding. Hemoglobin stabilized. Continues on 3 pressor support. Critical Care Time (minutes): 60 Physical Exam Vital Signs: Vital Signs: Last Vital Signs Temp 100.2 F 01/09/23 10:00 Pulse 101 H 01/09/23 10:43 Resp 36 H 01/09/23 10:13 BP 72/42 L 01/09/23 10:43 Pulse Ox 84 L 01/09/23 10:13 O2 Del Method Mechanical Ventil ation 01/09/23 10:00 FiO2 100 01/09/23 10:00 BMI result Body Mass Index 20.9 Const: General: no acute distress and patient obtunded Orientation/consciousness: patient obtunded Eyes: Sclerae: sclerae normal (Edematous) Neck: Neck: Yes no lymphadenopathy, Yes trachea midline and Yes supple Resp: Auscultation: crackles (Diffuse bilateral) Cardio: Rate: tachycardic Rhythm: regular rhythm Heart sounds: no gallops, no murmurs and no rubs GI: Palpation (GI): Soft to palpation and Other GI palpation findings present ( Nontender) Auscultation: normal bowel sounds Neuro: General: patient obtunded Extrem: General: Yes no pedal edema, No clubbing and No cyanosis Objective Data Labs 01/09/23 05:17 01/09/23 05:17 Labs: Laboratory Results - last 24 hr 01/08/23 01/08/23 01/08/23 10:59 11:00 11:00 WBC 24.8 H RBC 1.65 L Hgb 4.8 L* Hct 15.3 L* MCV 92.7 MCH 29.1 MCHC 31.4 RDW 14.2 Plt Count 308 MPV 10.3 Immature Gran % (Auto) Cancelled Neut % (Auto) Cancelled Lymph % (Auto) Cancelled [place] % (Auto) Cancelled Eos % (Auto) Cancelled Baso % (Auto) Cancelled Lymph # (Auto) Cancelled [place] # (Auto) Cancelled Eos # (Auto) Cancelled Baso # (Auto) Cancelled Abs Immat Gran (auto) Cancelled Absolute Neuts (auto) Cancelled Absolute Nucleated RBC 0.550 H Nucleated RBC % (auto) 2.2 H Neutrophils % (Manual) 62 Band Neutrophils % 7 H Lymphocytes % (Manual) 20 Monocytes % (Manual) 4 Eosinophils % (Manual) 1 Metamyelocytes % 2 Myelocytes % 4 Abs Neuts (Manual) 17.1 H Lymphocytes # (Manual) 5.0 H Monocytes # (Manual) 1.0 Eosinophils # (Manual) 0.2 Metamyelocytes # 0.5 Myelocytes # 1.0 Nucleated RBCs 5 H Toxic Granulation Dohle Bodies Platelet Estimate NORMAL Large Platelets Giant Platelets Plt Morphology Comment NORMAL RBC Morphology NOTED Polychromasia 1+ (0-2) Spherocytes 1+ (0-2) Ovalocytes Melisa Cells 3+ (>5) Acanthocytes (Spur) 1+ (0-2) Schistocytes 1+ (0-2) Hold Purple Top SEE NOTE PT 16.2 H Cancelled INR 1.3 H APTT O2 Saturation ABG pH at Pt Temp ABG pCO2 at Pt Temp ABG pO2 at Pt Temp ABG HCO3 ABG Base Excess (Actual) VBG pH VBG pCO2 VBG pO2 VBG HCO3 VBG O2 Saturation VBG Base Excess Sodium Potassium Chloride Carbon Dioxide Anion Gap BUN Creatinine Estim Creat Clear Calc Estimated GFR POC Glucose 219 H Random Glucose Lactic Acid Lactic Acid F/U @ 2Hr Lactic Acid F/U @ 4Hr Calcium Phosphorus Magnesium Total Bilirubin AST ALT Alkaline Phosphatase Troponin I High Sens Total Protein Albumin Urine Color Urine Appearance Urine pH Ur Specific [place] Urine Protein Urine Glucose (UA) Urine Ketones Urine Blood Urine Nitrite Ur Leukocyte Esterase Urine RBC Urine WBC Ur Squamous Epith Cells Urine Bacteria Hyaline Casts Salicylates Urine Opiates Screen Urine Fentanyl Screen Acetaminophen Ur Barbiturates Screen Ur Phencyclidine Scrn Ur Amphetamines Screen U Benzodiazepines Scrn Urine Cocaine Screen U Marijuana (THC) Screen Ethyl Alcohol Blood Type Antibody Screen Crossmatch 10/10/23 10/10/23 10/10/23 11:00 11:14 11:42 WBC RBC Hgb Hct MCV MCH MCHC RDW Plt Count MPV Immature Gran % (Auto) Neut % (Auto) Lymph % (Auto) [place] % (Auto) Eos % (Auto) Baso % (Auto) Lymph # (Auto) [place] # (Auto) Eos # (Auto) Baso # (Auto) Abs Immat Gran (auto) Absolute Neuts (auto) Absolute Nucleated RBC Nucleated RBC % (auto) Neutrophils % (Manual) Band Neutrophils % Lymphocytes % (Manual) Monocytes % (Manual) Eosinophils % (Manual) Metamyelocytes % Myelocytes % Abs Neuts (Manual) Lymphocytes # (Manual) Monocytes # (Manual) Eosinophils # (Manual) Metamyelocytes # Myelocytes # Nucleated RBCs Toxic Granulation Dohle Bodies Platelet Estimate Large Platelets Giant Platelets Plt Morphology Comment RBC Morphology Polychromasia Spherocytes Ovalocytes Lee Cells Acanthocytes (Spur) Schistocytes Hold Purple Top PT INR Cancelled APTT 47.2 H O2 Saturation ABG pH at Pt Temp ABG pCO2 at Pt Temp ABG pO2 at Pt Temp ABG HCO3 ABG Base Excess (Actual) VBG pH 7.07 L* VBG pCO2 21 VBG pO2 87 VBG HCO3 6 L VBG O2 Saturation TNP VBG Base Excess -21.5 Sodium 124 L Potassium 5.6 H Chloride 92 L Carbon Dioxide 8 L* Anion Gap 30 H BUN 53 H Creatinine 1.12 Estim Creat Clear Calc 54.2 Estimated GFR > 60 POC Glucose Random Glucose 269 H Lactic Acid 14.8 H* Lactic Acid F/U @ 2Hr Lactic Acid F/U @ 4Hr Calcium 8.4 Phosphorus Magnesium 3.0 H Total Bilirubin 0.3 AST 149 H ALT 145 H Alkaline Phosphatase 290 H Troponin I High Sens 7.2 Total Protein 4.3 L Albumin 2.4 L Urine Color Urine Appearance Urine pH Ur Specific [place] Urine Protein Urine Glucose (UA) Urine Ketones Urine Blood Urine Nitrite Ur Leukocyte Esterase Urine RBC Urine WBC Ur Squamous Epith Cells Urine Bacteria Hyaline Casts Salicylates < 5.0 L Urine Opiates Screen Urine Fentanyl Screen Acetaminophen < 17 Ur Barbiturates Screen Ur Phencyclidine Scrn Ur Amphetamines Screen U Benzodiazepines Scrn Urine Cocaine Screen U Marijuana (THC) Screen Ethyl Alcohol < 10 Blood Type A Positive Antibody Screen NEGATIVE Crossmatch See Detail 01/08/23 01/08/23 01/08/23 11:45 13:44 15:03 WBC RBC Hgb Hct MCV MCH MCHC RDW Plt Count MPV Immature Gran % (Auto) Neut % (Auto) Lymph % (Auto) [place] % (Auto) Eos % (Auto) Baso % (Auto) Lymph # (Auto) [place] # (Auto) Eos # (Auto) Baso # (Auto) Abs Immat Gran (auto) Absolute Neuts (auto) Absolute Nucleated RBC Nucleated RBC % (auto) Neutrophils % (Manual) Band Neutrophils % Lymphocytes % (Manual) Monocytes % (Manual) Eosinophils % (Manual) Metamyelocytes % Myelocytes % Abs Neuts (Manual) Lymphocytes # (Manual) Monocytes # (Manual) Eosinophils # (Manual) Metamyelocytes # Myelocytes # Nucleated RBCs Toxic Granulation Dohle Bodies Platelet Estimate Large Platelets Giant Platelets Plt Morphology Comment RBC Morphology Polychromasia Spherocytes Ovalocytes Lee Cells Acanthocytes (Spur) Schistocytes Hold Purple Top PT INR APTT O2 Saturation 82.0 ABG pH at Pt Temp 6.94 L* ABG pCO2 at Pt Temp 50 H ABG pO2 at Pt Temp 65 L ABG HCO3 11 L ABG Base Excess (Actual) -20.5 VBG pH VBG pCO2 VBG pO2 VBG HCO3 VBG O2 Saturation VBG Base Excess Sodium Potassium Chloride Carbon Dioxide Anion Gap BUN Creatinine Estim Creat Clear Calc Estimated GFR POC Glucose Random Glucose Lactic Acid Lactic Acid F/U @ 2Hr 14.2 H* Lactic Acid F/U @ 4Hr Calcium Phosphorus Magnesium Total Bilirubin AST ALT Alkaline Phosphatase Troponin I High Sens Total Protein Albumin Urine Color Yellow Urine Appearance Clear Urine pH 6.0 Ur Specific [place] 1.025 Urine Protein 30 (1+) H Urine Glucose (UA) Negative Urine Ketones Negative Urine Blood Negative Urine Nitrite Negative Ur Leukocyte Esterase Negative Urine RBC 0-2 Urine WBC 0-5 Ur Squamous Epith Cells 0-2 Urine Bacteria None Seen Hyaline Casts 6-10 Salicylates Urine Opiates Screen POSITIVE H Urine Fentanyl Screen Not Detected Acetaminophen Ur Barbiturates Screen Not Detected Ur Phencyclidine Scrn Not Detected Ur Amphetamines Screen Not Detected U Benzodiazepines Scrn Not Detected Urine Cocaine Screen Not Detected U Marijuana (THC) Screen POSITIVE H Ethyl Alcohol Blood Type Antibody Screen Crossmatch 01/08/23 01/08/23 01/08/23 16:06 16:07 16:35 WBC 10.7 RBC 3.53 L D Hgb 10.3 L D Hct 32.9 L D MCV 93.2 MCH 29.2 MCHC 31.3 RDW 15.2 Plt Count 126 L D MPV 9.6 Immature Gran % (Auto) Cancelled Neut % (Auto) Cancelled Lymph % (Auto) Cancelled [place] % (Auto) Cancelled Eos % (Auto) Cancelled Baso % (Auto) Cancelled Lymph # (Auto) Cancelled [place] # (Auto) Cancelled Eos # (Auto) Cancelled Baso # (Auto) Cancelled Abs Immat Gran (auto) Cancelled Absolute Neuts (auto) Cancelled Absolute Nucleated RBC 0.550 H Nucleated RBC % (auto) 5.1 H Neutrophils % (Manual) 49 Band Neutrophils % 14 H Lymphocytes % (Manual) 12 L Monocytes % (Manual) 2 Eosinophils % (Manual) 1 Metamyelocytes % 9 Myelocytes % 13 Abs Neuts (Manual) 6.7 Lymphocytes # (Manual) 1.3 Monocytes # (Manual) 0.2 Eosinophils # (Manual) 0.1 Metamyelocytes # 1.0 Myelocytes # 1.4 Nucleated RBCs 4 H Toxic Granulation PRESENT Dohle Bodies PRESENT Platelet Estimate SLIGHTLY DECREASED Large Platelets Giant Platelets Plt Morphology Comment NORMAL RBC Morphology NOTED Polychromasia 1+ (0-2) Spherocytes Ovalocytes Melisa Cells 1+ (0-2) Acanthocytes (Spur) Schistocytes Hold Purple Top PT INR APTT O2 Saturation ABG pH at Pt Temp ABG pCO2 at Pt Temp ABG pO2 at Pt Temp ABG HCO3 ABG Base Excess (Actual) VBG pH VBG pCO2 VBG pO2 VBG HCO3 VBG O2 Saturation VBG Base Excess Sodium 129 L Potassium 4.8 Chloride 99 Carbon Dioxide 12 L Anion Gap 23 H BUN 51 H Creatinine 1.01 Estim Creat Clear Calc 60.1 Estimated GFR > 60 POC Glucose 145 H Random Glucose 166 H Lactic Acid 12.1 H* Lactic Acid F/U @ 2Hr Lactic Acid F/U @ 4Hr Calcium 6.8 L D Phosphorus Magnesium Total Bilirubin 0.4 AST 1539 H ALT 1109 H Alkaline Phosphatase 295 H Troponin I High Sens 30.7 D Total Protein 2.7 L Albumin 1.5 L Urine Color Urine Appearance Urine pH Ur Specific [place] Urine Protein Urine Glucose (UA) Urine Ketones Urine Blood Urine Nitrite Ur Leukocyte Esterase Urine RBC Urine WBC Ur Squamous Epith Cells Urine Bacteria Hyaline Casts Salicylates Urine Opiates Screen Urine Fentanyl Screen Acetaminophen Ur Barbiturates Screen Ur Phencyclidine Scrn Ur Amphetamines Screen U Benzodiazepines Scrn Urine Cocaine Screen U Marijuana (THC) Screen Ethyl Alcohol Blood Type Antibody Screen Crossmatch 01/08/23 01/08/23 01/08/23 17:39 21:14 21:18 WBC 4.4 L RBC 3.49 L Hgb 10.3 L Hct 32.0 L MCV 91.7 MCH 29.5 MCHC 32.2 RDW 15.0 Plt Count 84 L D MPV 9.7 Immature Gran % (Auto) Cancelled Neut % (Auto) Cancelled Lymph % (Auto) Cancelled [place] % (Auto) Cancelled Eos % (Auto) Cancelled Baso % (Auto) Cancelled Lymph # (Auto) Cancelled [place] # (Auto) Cancelled Eos # (Auto) Cancelled Baso # (Auto) Cancelled Abs Immat Gran (auto) Cancelled Absolute Neuts (auto) Cancelled Absolute Nucleated RBC 0.660 H Nucleated RBC % (auto) 15.1 H Neutrophils % (Manual) 54 Band Neutrophils % 9 H Lymphocytes % (Manual) 14 L Monocytes % (Manual) 3 Eosinophils % (Manual) 1 Metamyelocytes % 9 Myelocytes % 10 Abs Neuts (Manual) 2.8 Lymphocytes # (Manual) 0.6 L Monocytes # (Manual) 0.1 Eosinophils # (Manual) Metamyelocytes # 0.4 Myelocytes # 0.4 Nucleated RBCs 4 H Toxic Granulation PRESENT Dohle Bodies PRESENT Platelet Estimate DECREASED Large Platelets PRESENT Giant Platelets PRESENT Plt Morphology Comment NOTE RBC Morphology NOTED Polychromasia 1+ (0-2) Spherocytes Ovalocytes 1+ (5-14) Melisa Cells 1+ (0-2) Acanthocytes (Spur) Schistocytes Hold Purple Top PT INR APTT O2 Saturation ABG pH at Pt Temp ABG pCO2 at Pt Temp ABG pO2 at Pt Temp ABG HCO3 ABG Base Excess (Actual) VBG pH 7.05 L* 7.15 L* VBG pCO2 43 33 VBG pO2 35 87 VBG HCO3 12 L 12 L VBG O2 Saturation 51.0 98.0 VBG Base Excess -17.6 -15.5 Sodium 129 L Potassium 4.2 Chloride 98 Carbon Dioxide 12 L Anion Gap 23 H BUN 54 H Creatinine 1.38 Estim Creat Clear Calc 44.0 Estimated GFR 52 POC Glucose Random Glucose 182 H Lactic Acid Lactic Acid F/U @ 2Hr Lactic Acid F/U @ 4Hr Calcium 7.1 L Phosphorus 5.8 H Magnesium 2.2 Total Bilirubin AST ALT Alkaline Phosphatase Troponin I High Sens Total Protein Albumin Urine Color Urine Appearance Urine pH Ur Specific [place] Urine Protein Urine Glucose (UA) Urine Ketones Urine Blood Urine Nitrite Ur Leukocyte Esterase Urine RBC Urine WBC Ur Squamous Epith Cells Urine Bacteria Hyaline Casts Salicylates Urine Opiates Screen Urine Fentanyl Screen Acetaminophen Ur Barbiturates Screen Ur Phencyclidine Scrn Ur Amphetamines Screen U Benzodiazepines Scrn Urine Cocaine Screen U Marijuana (THC) Screen Ethyl Alcohol Blood Type Antibody Screen Crossmatch 01/08/23 01/08/23 01/09/23 22:02 23:31 00:32 WBC RBC Hgb Hct MCV MCH MCHC RDW Plt Count MPV Immature Gran % (Auto) Neut % (Auto) Lymph % (Auto) [place] % (Auto) Eos % (Auto) Baso % (Auto) Lymph # (Auto) [place] # (Auto) Eos # (Auto) Baso # (Auto) Abs Immat Gran (auto) Absolute Neuts (auto) Absolute Nucleated RBC Nucleated RBC % (auto) Neutrophils % (Manual) Band Neutrophils % Lymphocytes % (Manual) Monocytes % (Manual) Eosinophils % (Manual) Metamyelocytes % Myelocytes % Abs Neuts (Manual) Lymphocytes # (Manual) Monocytes # (Manual) Eosinophils # (Manual) Metamyelocytes # Myelocytes # Nucleated RBCs Toxic Granulation Dohle Bodies Platelet Estimate Large Platelets Giant Platelets Plt Morphology Comment RBC Morphology Polychromasia Spherocytes Ovalocytes Melisa Cells Acanthocytes (Spur) Schistocytes Hold Purple Top PT INR APTT O2 Saturation ABG pH at Pt Temp ABG pCO2 at Pt Temp ABG pO2 at Pt Temp ABG HCO3 ABG Base Excess (Actual) VBG pH VBG pCO2 VBG pO2 VBG HCO3 VBG O2 Saturation VBG Base Excess Sodium Potassium Chloride Carbon Dioxide Anion Gap BUN Creatinine Estim Creat Clear Calc Estimated GFR POC Glucose 188 H Random Glucose Lactic Acid Lactic Acid F/U @ 2Hr 10.7 H* Lactic Acid F/U @ 4Hr 10.4 H* Calcium Phosphorus Magnesium Total Bilirubin AST ALT Alkaline Phosphatase Troponin I High Sens Total Protein Albumin Urine Color Urine Appearance Urine pH Ur Specific [place] Urine Protein Urine Glucose (UA) Urine Ketones Urine Blood Urine Nitrite Ur Leukocyte Esterase Urine RBC Urine WBC Ur Squamous Epith Cells Urine Bacteria Hyaline Casts Salicylates Urine Opiates Screen Urine Fentanyl Screen Acetaminophen Ur Barbiturates Screen Ur Phencyclidine Scrn Ur Amphetamines Screen U Benzodiazepines Scrn Urine Cocaine Screen U Marijuana (THC) Screen Ethyl Alcohol Blood Type Antibody Screen Crossmatch 01/09/23 01/09/23 05:17 05:20 WBC 9.9 RBC 3.44 L Hgb 10.1 L Hct 29.4 L MCV 85.5 D MCH 29.4 MCHC 34.4 RDW 14.9 Plt Count 45 L D MPV 12.5 H Immature Gran % (Auto) Cancelled Neut % (Auto) Cancelled Lymph % (Auto) Cancelled [place] % (Auto) Cancelled Eos % (Auto) Cancelled Baso % (Auto) Cancelled Lymph # (Auto) Cancelled [place] # (Auto) Cancelled Eos # (Auto) Cancelled Baso # (Auto) Cancelled Abs Immat Gran (auto) Cancelled Absolute Neuts (auto) Cancelled Absolute Nucleated RBC 1.290 H Nucleated RBC % (auto) 13.0 H Neutrophils % (Manual) 27 L Band Neutrophils % 42 H Lymphocytes % (Manual) 14 L Monocytes % (Manual) 2 Eosinophils % (Manual) Metamyelocytes % 7 Myelocytes % 8 Abs Neuts (Manual) 6.8 Lymphocytes # (Manual) 1.4 Monocytes # (Manual) 0.2 Eosinophils # (Manual) Metamyelocytes # 0.7 Myelocytes # 0.8 Nucleated RBCs 38 H Toxic Granulation PRESENT Dohle Bodies PRESENT Platelet Estimate DECREASED Large Platelets PRESENT Giant Platelets Plt Morphology Comment NOTED RBC Morphology NOTED Polychromasia 1+ (0-2) Spherocytes Ovalocytes 1+ (5-14) Melisa Cells 3+ (>5) Acanthocytes (Spur) Schistocytes Hold Purple Top PT INR APTT O2 Saturation ABG pH at Pt Temp ABG pCO2 at Pt Temp ABG pO2 at Pt Temp ABG HCO3 ABG Base Excess (Actual) VBG pH 7.24 L VBG pCO2 39 VBG pO2 39 VBG HCO3 17 L VBG O2 Saturation 64.0 VBG Base Excess -9.4 Sodium 127 L Potassium 3.7 Chloride 95 L Carbon Dioxide 15 L Anion Gap 21 H BUN 58 H Creatinine 1.86 H Estim Creat Clear Calc 32.6 Estimated GFR 37 POC Glucose Random Glucose 146 H Lactic Acid Lactic Acid F/U @ 2Hr Lactic Acid F/U @ 4Hr Calcium 6.5 L D Phosphorus 4.1 Magnesium 2.0 Total Bilirubin 1.3 H AST 2237 H ALT 1197 H Alkaline Phosphatase 135 H Troponin I High Sens Total Protein 2.9 L Albumin 1.8 L Urine Color Urine Appearance Urine pH Ur Specific [place] Urine Protein Urine Glucose (UA) Urine Ketones Urine Blood Urine Nitrite Ur Leukocyte Esterase Urine RBC Urine WBC Ur Squamous Epith Cells Urine Bacteria Hyaline Casts Salicylates Urine Opiates Screen Urine Fentanyl Screen Acetaminophen Ur Barbiturates Screen Ur Phencyclidine Scrn Ur Amphetamines Screen U Benzodiazepines Scrn Urine Cocaine Screen U Marijuana (THC) Screen Ethyl Alcohol Blood Type Antibody Screen Crossmatch Progress Note: A&P Assessment and plan (1) Cardiac arrest: Status: Acute (2) Acute upper GI bleed: Status: Acute (3) Alcohol use disorder: Status: Acute (4) Acute hypoxic respiratory failure: Status: Acute (5) Pulmonary aspiration of gastric contents: Status: Acute (6) Acute blood loss anemia: Status: Acute (7) Hemorrhagic shock: Status: Acute (8) Ischemia reperfusion injury of liver: Status: Acute (9) ATN (acute tubular necrosis): Status: Acute Plan Assessment: 62-year-old gentleman admitted with cardiac arrest secondary to hemorrhagic shock secondary to upper GI bleed with hospital course further complicated by refractory shock and refractory hypoxia Plan: Neuro: No acute issues. Cardiac: Cardiac arrest after hemorrhagic shock, now on multiple pressor support. Continue to titrate off as tolerated. Echo requested. Pulmonary: Acute hypoxic respiratory failure, intubated during CPR, aspiration of gastric contents/coffee ground emesis. On maximum ventilatory support with refractory hypoxia. Renal: Acute renal failure with oliguria, likely secondary to ATN. Continue to monitor renal indices. Endo: No acute issues. GI: Upper GI bleed. Gastroenterology service consulted. PPI and octreotide drips. Suspicion for underlying alcoholic cirrhosis. Planned for bedside EGD today. ID: No evidence of septic shock. Underlying hemorrhagic shock. Empirically covered with cefepime. Heme/Onc: acute blood loss anemia secondary to upper GI bleed, now status post 4 units of packed red blood cells with stabilization of hemoglobin. Continue to monitor hemoglobin level. Psych: No acute issues. Miscellaneous: No acute issues. Prophylaxis: PPI drip, pneumatic compression Diet: nothing by mouth Critical care time spent: 60 minutes Quality Stroke Does the patient have a stroke diagnosis?: No VTE Prior VTE?: No VTE Risk Level:: Medical - moderate - high VTE Device Contraindication: N/A - Device Ordered VTE Drug Contraindication: Treatment Not Indicated
--- NOTE | 2023-01-09 12:14 | MHC.SHP ---
Pre-Procedural Eval Section A Date of Service: 01/09/23 The patient is an INPATIENT: Yes The History & Physical has been completed within 30 days and I have reviewed it.: Yes Section B Chief Complaint: cardiac arrest hemorrhagic shock Allergies: Allergies Allergy/AdvReac Type Severity Reaction Status Date / Time No Known Allergies Allergy Verified 01/08/23 11:18 Plan I have reviewed the history and physical and performed a pertinent physical examination on my patient. No changes have occurred unless specified. acute blood loss anemia, plan for EGD to Ix further Time Spent With Patient Time: Total time managing care of this patient today ____ minutes.
--- NOTE | 2023-01-09 12:32 | W.PM.CCHP ---
Procedures Date of Service Date of Service: 01/09/23 Central Line Placement Left IJ: Central Line Comments: After obtaining informed consent left internal jugular triple-lumen central venous catheter placed under ultrasound guidance and usual sterile techniques with additional bleeding encountered after catheter placement which was controlled with placement of purse suture with achievement of complete hemostasis. Patient tolerated procedure well. X-ray for line position is pending.
--- NOTE | 2023-01-09 13:21 | MHC.CM.PN ---
This fiction writer spoke w/ pt's sister who has limited information on patient. She is unsure if patient has health insurance or primary care physician. 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 Patient does not have a health care proxy. DCP- is to be determined based on patient's hospital course.
--- NOTE | 2023-01-09 13:23 | W.PM.OPN ---
Operative Note Operative Note Date of Service: 01/09/23 Narrative: Procedure Description: EGD Indication: Acute GI bleed Anesthesia: MAC FLEXIBLE TRANSORAL UPPER GASTROINTESTINAL ENDOSCOPY UPPER ENDOSCOPY Consent: Indications for the procedure and potential complications of bleeding, perforation, reaction to medications and missed diagnosis were discussed with the patient and informed consent was obtained. Instrument: Olympus GIF H 190 J mid size upper endoscope Monitoring: Vital signs and clinical assessment, continuous EKG monitoring, Pulse oximetry, Carbon Dioxide monitoring and blood pressure monitoring were done throughout the procedure. Procedure: The patient was placed in the left lateral decubitis position and pre-procedure medications were administered and a bite block was placed. The endoscope was inserted into the mouth and advanced under direct vision to the third part of duodenum. A careful inspection was made as the upper endoscope was withdrawn including a retroflexed examination of the proximal stomach; Findings and interventions are described below. Findings: Larynx:normal Esophagus: GE junction at 38 cm, diaphragm hiatus at 38 cm. The whole lining of the esophagus was abnormal with diffuse nodularity, and white slough noted. Mucosa was friable, few biopsies were taken, no esophageal varices seen. there was oozing of blood at the GEJ. Hemospray was applied Stomach: Patchy gastric erythema consistent with hemorrhagic gastritis,, some pallor noted consistent with ischemia. Grade 3 flap valve on retroflexed examination of the cardia consistent with incompetent LES. Duodenum: congestion and pallor noted,no bleeding or ulcers Intervention: Biopsies as noted above, control of bleeding with hemospray Impression/Findings: severe esophagitis hemorrhagic gastritis PLAN: cont with high dose PPI, GERD precautions ok to d/c octreotide avoid OG placement for 24-48 hrs repeat EGD in 3 months depending on his current clinical course
--- NOTE | 2023-01-09 14:45 | PC.NURSE ---
Assumed care of patient 07:00 Pt on multiple vasopressors (levophed, Damian, epinephrine gtts) with increasing needs Vent settings maxed with FiO2 100%, SaO2 82-85%, MD aware Plan for placement of Central line catheter for continued need of pressors. MD obtained consent with RN witness via phone from sister Romina Calderon. TLC placement pre-procedure started at 11:45. Time out performed. 11:52 insertion of TLC to left IJ initiated with sterile technique. Placement confirmed by CXR. GI consult ordered. GI assessed patient.Plan for EGD at bedside for signs of GI bleed, small amount of rust colored OG tube output. 12:14 H+P reviewed by TRISH BISHOP and consent obtained from sister Romina via phone. 12:40 Pre-procedure started. Equipment set up and time out performed. Pt given Reglan IVP and Propofol gtt titrated to 30. RT assisted 12:55 EGD performed. GI , RT and 3 RNs at bedside. Multiple biopsies obtained. See GI procedure note. Pt stable post-precedure, SaO2 improved to 89-90%. VSS 13:30 Pt provided bed bath, turned and skin inspected. Blanchable redness to buttocks, large foam applied for skin protection. Wedges used to reposition. 15:00 Echocardiogram obtained for patient. Patient repositioned Q2H, frequent mouth care, high fall precautions
[2023-01-09] MEDS: Norepinephrine Bitartrate/D5W 8 MG/250 ML PLAST..BAG 105.19 MG IV ×3 (15:08→19:32)
[2023-01-09] MEDS: Sodium Bicarbonate 8.4% 50 MEQ/50 ML VIAL IVPUSH ×3 (18:15→22:24)
[2023-01-09] MEDS: Calcium Gluconate/NaCl,Iso-Osm 2 GM/100 ML PLAST..BAG IV ×2 (18:22→20:36)
[2023-01-09] MEDS: Albumin Human 25 % 100 ML IV (18:32)
[2023-01-09 19:28] LABS: Hemoglobin 7.6 g/dl (14.0-18.0); Mean Corpuscular HGB Conc 34.5 g/dl (31.0-36.0); PLT CLUMP 1
[2023-01-09 19:30] LABS: Mean Corpuscular Hemoglobin 29.7 pg (27.0-33.0); Mean Corpuscular Volume 85.9 fL (80.0-98.0); Red Blood Count 2.56 X10*6/uL (4.60-5.80); Red Cell Distribution Width 15.5 % (11.0-16.0)
[2023-01-09 19:34] LABS: PLT ABN DIST 1; WBC ABN SCTR FOR CBC 1
[2023-01-09 19:35] LABS: NRBC Pct Auto 5.6 /100WBC (0.0-0.2); White Blood Count 16.4 X10*3/uL (4.8-10.8)
[2023-01-09 19:58] LABS: Platelet Count 11 X10*3/uL (160-400)
[2023-01-09 20:15] LABS: Band Neutrophils Percent 30 % (3-5); Burr Cells 3+ (>5) /OIF; Lymphocytes Absolute Manual 2.5 X10*3/uL (1.2-4.9); Lymphocytes Percent Manual 15 % (20-40); Metamyelocytes Absolute 2.1 X10*3/uL; Metamyelocytes Percent 13 %; Monocytes Absolute Manual 0.5 X10*3/uL (0.1-1.2); Monocytes Percent Manual 3 % (2-11); Myelocytes Absolute 2.3 X10*/uL; Myelocytes Percent 14 %; Neutrophils Percent Manual 25 % (45-73); Nucleated Red Blood Cells 4 /100WBC (0-0); RBC Morphology NOTED
[2023-01-09 20:16] LABS: Dohle Bodies PRESENT; Polychromasia 1+ (0-2) /OIF
[2023-01-09 20:17] LABS: Platelet Estimate DECREASED (NORMAL); Platelet Morphology Comment NORMAL; Toxic Granulation PRESENT; Toxic Vacuolation PRESENT
[2023-01-09 20:22] LABS: Anion Gap 19 (12-20); Blood Urea Nitrogen 60 mg/dL (9-16); Calcium 6.1 mg/dL (8.4-10.2); Carbon Dioxide 16 mmol/L (22-29); Chloride 89 mmol/L (96-108); Creatinine Clr Calc Pharmacy 28.5; Estimated Glomerular Filt Rate 26; Glucose Random 178 mg/dL (60-115); Potassium 4.6 mmol/L (3.3-5.1); Sodium 119 mmol/L (135-145)
[2023-01-09] MEDS: Vasopressin 20 UNIT/100 ML INFUS..BTL 12 UNIT IV (20:27)
[2023-01-09] MEDS: Chlorhexidine Gluc Oral Rinse 15 ML MOUTHWASH BUCCAL (20:36)
[2023-01-09] MEDS: Phenylephrine HCL 100 MG in 0.9 % Sodium Chloride 250 ML 61.87 MG IVCONT (20:43)
[2023-01-09 20:49] LABS: Albumin Level 2.4 g/dL (3.5-5.0)
--- NOTE | 2023-01-09 23:42 | PC.NURSE ---
Addendum entered by Marika Bocanegra RN 01/10/23 01:12: 0007 - pt asystole, BULK TRUCK DRIVER at bedside to pronounce 0025 - NEDS notified Post mortem care provided, belongings sent with pt to [place], family to call in morning with home Original Note: Assumed care 1899 - MAP <65, pressors titrated to max per may. Josh BULK TRUCK DRIVER at bedside?to speak with family 1926 - amp bicarb given 2036 - Vasopressin gtt started with little improvement in BP 2043 - unit RBCs administered 2201? - 1 unit platelets?administered? 2223 - BP systolic 70-80s, 1 amp bicarb given. Family back to bedside, Josh BULK TRUCK DRIVER discussed?goals of care with family, family aware of prognosis - pt remains DNR. To hold the 2nd unit of RBCs per BULK TRUCK DRIVER
[2023-01-10] VITALS: BP 56/29; PULSE 77; RESP 22; TEMP 37.8; O2SAT 70
--- NOTE | 2023-01-10 00:22 | PM.EVENT ---
Documented by User: Josh Chan NP 01/10/23 00:27 Event Note Date of Service: 01/10/23 Event Note: Patient with deterioration of clinical status over night, patient requiring max support with pressors despite interventions. Code status DNR /DNI,? family was asked to come to the bedside.? ? ?At?0007 monitor reading asystole.? On my assessment, the patient had absent peripheral pulses.? Pupils fixed and dilated.? Absent heart sounds. No corneal or gag reflex. Time of 0007.? Sister Rashida and family friend at bedside . Not a medical exam candidate.? Organ donation was notified by nursing.? Attending Dr Kim notified? Time Spent With Patient Time: Total time managing care of this patient today ____ minutes. Documented by User: Kaz Kim MD 01/10/23 16:24 Event Note Date of Service: 01/10/23
--- NOTE | 2023-01-11 14:11 | P.DN_ITS ---
Discharge Sum: Prov Provider Primary care physician: None Physician Consults: 01/08/23 12:48 Consult to Gastroenterology Stat Consulting Provider: [facility] [place] [facility] Reason for consultation: UGIB, hemorrhagic shock Has provider been notified: No Discharge Sum: Diag PCOD Cause of : Hemorrhagic shock Contributing Factors (1) Alcohol use disorder: (2) Acute upper GI bleed: (3) Hemorrhagic shock: (4) Cardiac arrest: (5) Acute hypoxic respiratory failure: (6) Pulmonary aspiration of gastric contents: (7) Acute blood loss anemia: (8) Ischemia reperfusion injury of liver: (9) ATN (acute tubular necrosis): Discharge Sum: Summary Date and Time Date of admission: 01/08/23 12:09 Date of : 01/10/23 Time of : 00:07 Summary Details: 62-year-old gentleman with underlying alcoholism admitted on 01/08/2023 with coffee ground emesis resulting in cardiac arrest in the emergency room with return of spontaneous circulation after approximately 15 minutes of CPR, intubated during the code with coffee-ground material suctioned from ET tube. Patient with initial brief stabilization, however shortly re-developed shock requiring placement of emergent large bore central venous access for pressor support and blood product administration. Unable to obtain imaging studies secondary to refractory shock and hypoxia refractory to maximum ventilatory support. Patient resuscitated with IV fluids and 4 units of packed red blood cells, however with development of shock requiring 3 pressor support. Patient had EGD performed on 01/09/2023 demonstrating diffuse esophagitis and gastritis with no acute bleeding. Echocardiogram with ejection fraction of approximately 40%. Hospital course significant for progressive shock refractory to maximum vasopressor support, bicarbonate, and calcium with progressive hypotension. Overall no chance for meaningful clinical outcome discussed with patient's sister and code status changed to DNR. Patient with further progressive hypotension refractory to pressor support with resultant asystole at 00:07 01/10/2023. Family at bedside. Additional Data Attending physician: Kaz Kim MD
== END 2023-01-10 00:07 | disposition expired | DRG 368 ==
LOC: HO.ED 12:32 → HO.EDOVER 12:33 → HO.ICU 12:58
PROVIDERS: Internal Medicine Gastroenterology; Registered Nurse Community Health; Admitting Provider Internal Medicine Pulmonary Disease; Emergency Provider Student in an Organized Health Care Education/Training Program; Visit Provider Internal Medicine Pulmonary Disease
PROC: 0DJ08ZZ Inspection of Upper Intestinal Tract, Via Natural or Artificial Opening Endoscopic (ICD-10-PCS; CPT 43235; principal; 2023-01-09 12:30)
DX: K20.91 Esophagitis, unspecified with bleeding (principal); E43 Unspecified severe protein-calorie malnutrition; K29.71 Gastritis, unspecified, with bleeding; J96.01 Acute respiratory failure with hypoxia; N17.0 Acute kidney failure with tubular necrosis; D62 Acute posthemorrhagic anemia; E87.1 Hypo-osmolality and hyponatremia; Z66 Do not resuscitate; Z68.20 Body mass index [BMI] 20.0-20.9, adult; I46.9 Cardiac arrest, cause unspecified; R57.8 Other shock; F10.20 Alcohol dependence, uncomplicated
CPT/HCPCS: 36415; 36600; 71045; 80048; 80053; 80143; 80179; 80307; 81001; 81003; 82040; 82803; 82947; 83605; 83735; 84100; 84484; 85007; 85027; 85610; 85730; 86850; 86900; 86901; 86920; 86923; 88305; 93005; 93306; 94002; 94003; 94799; 99284; C1758; J0171; J0613; J0692; J0696; J2354; J2371; J2765; P9016; P9047; P9073

== ENCOUNTER 2023-01-08 12:09 | Outpatient (BNV) | payer SELFPAY | END 2023-01-09 07:00 | PROVIDERS: Admitting Provider Internal Medicine Pulmonary Disease; Emergency Provider Student in an Organized Health Care Education/Training Program; Visit Provider Internal Medicine Cardiovascular Disease | DX: I46.9 Cardiac arrest, cause unspecified (principal) | CPT/HCPCS: 93306 ==

== ENCOUNTER → 2023-01-08 12:09 | Outpatient (BNV) | payer SELFPAY | PROVIDERS: Admitting Provider Internal Medicine Pulmonary Disease; Emergency Provider Student in an Organized Health Care Education/Training Program; Visit Provider Internal Medicine Pulmonary Disease | DX: R57.1 Hypovolemic shock (principal); I46.9 Cardiac arrest, cause unspecified; K92.2 Gastrointestinal hemorrhage, unspecified; F10.90 Alcohol use, unspecified, uncomplicated; J96.01 Acute respiratory failure with hypoxia; T17.918A Gastric contents in respiratory tract, part unspecified causing other injury, initial encounter; D62 Acute posthemorrhagic anemia; K91.81 Other intraoperative complications of digestive system; N17.0 Acute kidney failure with tubular necrosis | CPT/HCPCS: 36556; 99238; 99291; 99292 ==

== ENCOUNTER → 2023-01-08 12:09 | Outpatient (BNV) | payer SELFPAY | PROVIDERS: Admitting Provider Internal Medicine Pulmonary Disease; Emergency Provider Student in an Organized Health Care Education/Training Program; Visit Provider Internal Medicine | DX: K20.90 Esophagitis, unspecified without bleeding (principal); K29.01 Acute gastritis with bleeding | CPT/HCPCS: 43239; 99223 ==